=== PATIENT | male | born 1940 | race Caucasian/White ===

== ENCOUNTER 2016-08-15 14:29 | Inpatient (IN) | payer MEDICARE, BC ==
[2016-08-15] MEDS ORDERED: Insulin Aspart 100 Units/ML 3 ML Pen SUBCUT ONE (15:14)
--- NOTE | 2016-08-15 15:32 | EDM.PDOC ---
ED HPI GENERAL MEDICAL PROBLEM - General Chief Complaint: General Stated Complaint: confusion, EKG changes Time Seen by Provider: 08/15/16 14:37 Source of Information: Reports: Patient, EMS, Family, Police History Limitations: Reports: Other (can be hard to understand patient when he is speaking. Mumbles words. This is long-standing issue and patient is speaking as usual per those familiar with him. ) - History of Present Illness INITIAL COMMENTS - FREE TEXT/NARRATIVE: Patient was brought to ER for evaluation by EMS after being pulled over by law enforcement for swerving. Noted to be hard to understand, appeared sweaty/pale to officer. EMS called. Could not get good EKG on site and thus they were concerned that patient could possibly be having some sort of heart issue. Noted to have blood sugar 368. Given single SL nitro as well as 4 baby ASA. Patient is without any complaints upon arrival. Says he feels like his normal self. Denies having vision issues. Nurse familiar with patient says he appears to be at his baseline level of functioning/speaking/interacting. Family visited with patient and did not note any changes. Family says patient has been pulled over in past for swerving on the road and found to have elevated blood sugar. Patient's driving has been a concern in past. Family says he has been "cut down to 3 towns"....it appears that he is only supposed to be driving from home to these three towns per family request. Patient lives alone at home and does not cook for self. He apparently drives self into town where he goes to restaurants to eat/has someone else cook for him. Treatments DRONE OPERATOR: Reports: Aspirin, IV/IO, Oxygen - Related Data Allergies Allergy/AdvReac Type Severity Reaction Status Date / Time No Known Drug Allergies Allergy Cannot Verified 08/15/16 14:49 Remember Home Meds: Home Meds Aspirin [Ecotrin] 1 tab PO DAILY 08/23/14 [History] Levothyroxine 75 mcg PO ACBREAKFAST 08/23/14 [History] Tamsulosin [Flomax] 0.4 mg PO DAILY 08/23/14 [History] atorvaSTATin [Lipitor] 40 mg PO BEDTIME 08/23/14 [History] Acetaminophen 500 mg PO DAILY 08/15/16 [History] Insulin Glarg,Human.Rec.Analog [Lantus Solostar] 23 unit SUBCUT DAILY 08/15/16 [ History] Lisinopril 2.5 mg PO DAILY 08/15/16 [History] amLODIPine [Norvasc] 10 mg PO DAILY 08/15/16 [History] Past Medical History Cardiovascular History: Reports: High cholesterol, Hypertension Genitourinary History: Reports: BPH, Renal disease, Urinary incontinence, Other (see below) Other Genitourinary History: CKD stage 4 Endocrine/Metabolic History: Reports: Diabetes, type II Social & Family History - Tobacco Use Smoking Status *Q: Never Smoker Second Hand Smoke Exposure: No - Caffeine Use Caffeine Use: Reports: Coffee - Alcohol Use Days Per Week of Alcohol Use: 2 Number of Drinks Per Day: 7 Total Drinks Per Week: 14 - Recreational Drug Use Recreational Drug Use: No ED ROS GENERAL - Review of Systems Review Of Systems: ROS reveals no pertinent complaints other than HPI. ED EXAM, GENERAL - Physical Exam Exam: See Below Exam Limited By: No limitations General Appearance: alert, WD/WN, no apparent distress Eye Exam: bilateral eye: EOMI, normal inspection Ears: normal external exam, normal canal, hearing grossly normal Nose: normal inspection Throat/Mouth: Normal inspection, Normal lips, Normal voice, No airway compromise Head: atraumatic, normocephalic Neck: normal inspection, supple, non-tender, full range of motion Respiratory/Chest: no respiratory distress, lungs clear, normal breath sounds, no accessory muscle use, chest non-tender Cardiovascular: regular rate, rhythm, no edema, no murmur Peripheral Pulses: 2+: radial (L), radial (R) GI/Abdominal: normal bowel sounds, soft, non tender, no distention (Male) Exam: Deferred Rectal (Males) Exam: Deferred Back Exam: normal inspection Extremities: non-tender, normal capillary refill Neurological: alert, oriented, other (neurological tone and strength symmetric x4) Psychiatric: normal affect, normal mood Skin Exam: Warm, Dry EKG INTERPRETATION EKG Date: 08/15/16 Time: 14:31 Rhythm: other (Sinus. Intermittent premature atrial complexes.) Rate (beats/min): 94 [place]: LAD-left axis deviation P-wave: present QRS: normal ST-T: normal QT: normal Comparison: no change Course - Vital Signs Last Recorded V/S: Last Vital Signs Temp 37.1 C 08/15/16 14:34 Pulse 88 08/15/16 15:25 Resp 12 08/15/16 15:25 BP 120/65 08/15/16 15:25 Pulse Ox 100 08/15/16 15:25 - Orders/Labs/Meds Orders: Active Orders 24 hr Category Date Time Status EKG Documentation Completion [RC] ASDIRECTED Care 08/15/16 14:40 Active Chest 2V [CR] Stat Exams 08/15/16 14:38 Taken UA W/MICROSCOPIC [URIN] Stat Lab 08/15/16 14:38 Uncollected Labs: Laboratory Tests 08/15/16 08/15/16 08/15/16 Range/Units 14:30 14:30 14:30 WBC 6.0 (4.0-10.2) K/uL RBC 4.27 L (4.33-5.41) M/uL Hgb 12.4 L (13.1-16.8) g/dL Hct 37.3 L (39.0-49.0) % MCV 87.4 (84.0-98.0) fL MCH 29.0 (28.2-33.3) pg MCHC 33.2 (31.7-36.0) g/dL RDW 13.1 (11.2-14.1) % Plt Count 250 (150-350) K/uL Neut % (Auto) 59.2 (45.0-80.0) % Lymph % (Auto) 23.4 (10.0-50.0) % [place] % (Auto) 11.7 (2.0-14.0) % Eos % (Auto) 5.0 (0.0-5.0) % Baso % (Auto) 0.7 (0.0-2.0) % Neut # (Auto) 3.55 (1.40-7.00) K/uL Lymph # (Auto) 1.40 (0.50-3.50) K/uL Bradford # (Auto) 0.70 (0.00-1.00) K/uL Eos # (Auto) 0.30 (0.00-0.50) K/uL Baso # (Auto) 0.04 (0.00-0.20) K/uL D-Dimer, Quantitative 368 (0-400) ng/mL Sodium 136 (136-145) mmol/L Potassium 4.2 (3.5-5.1) mmol/L Chloride 100 (98-107) mmol/L Carbon Dioxide 27.3 (21.0-32.0) mmol/L BUN 42 H (7-18) mg/dL Creatinine 2.08 H (0.51-1.17) mg/dL Est Cr Clr Drug Dosing 25.87 mL/min Estimated GFR (MDRD) 31 mL/min Glucose 431 H* (74-106) mg/dL Hemoglobin A1c (4.3-5.7) % Lactic Acid (0.4-2.0) mmol/L Calcium 8.5 (8.5-10.1) mg/dL Total Bilirubin 0.6 (0.2-1.0) mg/dL AST 20 (15-37) U/L ALT 25 (12-78) U/L Alkaline Phosphatase 63 (46-116) IU/L Creatine Kinase 142 (26-308) U/L Creatine Kinase Index 1.3 (0.0-2.5) % CK-MB (CK-2) 1.90 (0.00-3.60) ng/mL Troponin I 0.003 (0.000-0.056) ng/mL Total Protein 6.4 (6.4-8.2) g/dL Albumin 3.2 L (3.4-5.0) g/dL Ethyl Alcohol (0.000-0.080) g/dL 08/15/16 08/15/16 08/15/16 Range/Units 14:30 14:30 14:30 WBC (4.0-10.2) K/uL RBC (4.33-5.41) M/uL Hgb (13.1-16.8) g/dL Hct (39.0-49.0) % MCV (84.0-98.0) fL MCH (28.2-33.3) pg MCHC (31.7-36.0) g/dL RDW (11.2-14.1) % Plt Count (150-350) K/uL Neut % (Auto) (45.0-80.0) % Lymph % (Auto) (10.0-50.0) % Bradford % (Auto) (2.0-14.0) % Eos % (Auto) (0.0-5.0) % Baso % (Auto) (0.0-2.0) % Neut # (Auto) (1.40-7.00) K/uL Lymph # (Auto) (0.50-3.50) K/uL Bradford # (Auto) (0.00-1.00) K/uL Eos # (Auto) (0.00-0.50) K/uL Baso # (Auto) (0.00-0.20) K/uL D-Dimer, Quantitative (0-400) ng/mL Sodium (136-145) mmol/L Potassium (3.5-5.1) mmol/L Chloride (98-107) mmol/L Carbon Dioxide (21.0-32.0) mmol/L BUN (7-18) mg/dL Creatinine (0.51-1.17) mg/dL Est Cr Clr Drug Dosing mL/min Estimated GFR (MDRD) mL/min Glucose (74-106) mg/dL Hemoglobin A1c > 14.0 H (4.3-5.7) % Lactic Acid 1.2 (0.4-2.0) mmol/L Calcium (8.5-10.1) mg/dL Total Bilirubin (0.2-1.0) mg/dL AST (15-37) U/L ALT (12-78) U/L Alkaline Phosphatase (46-116) IU/L Creatine Kinase (26-308) U/L Creatine Kinase Index (0.0-2.5) % CK-MB (CK-2) (0.00-3.60) ng/mL Troponin I (0.000-0.056) ng/mL Total Protein (6.4-8.2) g/dL Albumin (3.4-5.0) g/dL Ethyl Alcohol 0.002 (0.000-0.080) g/dL Meds: Medications Discontinued Medications Generic Name Dose Route Start Last Admin Trade Name Freq PRN Reason Stop Dose Admin Insulin Aspart 10 unit 08/15/16 15:14 08/15/16 15:23 Novolog SUBCUT 08/15/16 15:15 10 units ONETIME ONE Administration Protocol - Re-Assessments/Exams Free Text/Narrative Re-Assessment/Exam: Patient oriented appropriately. Admits to problem with swerving on road while he drives. Can't really explain why he does it. Says he sees well enough to drive. Family and nursing staff familiar with patient say he appears to be functioning normally and does not have any obvious acute changes. Noted to have blood sugar of 431. Hgb A1C greater than 14. Cr=2.08 but patient does have history of chronic renal disease. Plan at this time is to admit patient for hyperglycemia. Will place him on sliding scale and work on getting blood sugars more in control. Recommend that patient not be allowed to drive anymore due to apparent multiple incidents with erratic driving accompanied by hyperglycemia. Leasing Director consult also/manager council given the issues with patient being home alone and not cooking for self or managing diabetes well. Anticipate stay of 2-3 days. Departure - Departure Time of Disposition: 16:00 Disposition: Admitted As Inpatient 65 Condition: good Clinical Impression: Hyperglycemia, High cholesterol Diabetes type 2, uncontrolled Qualifiers: Diabetes mellitus complication status: with hyperglycemia Diabetes mellitus nursing home insulin use: unspecified nursing home insulin use status Qualified Code(s ): E11.65 - Type 2 diabetes mellitus with hyperglycemia Hypertension Qualifiers: Hypertension type: essential hypertension Qualified Code(s): I10 - Essential ( primary) hypertension BPH (benign prostatic hyperplasia) Qualifiers: Prostatic enlargement morphology: unspecified morphology Lower urinary tract symptom presence: presence of symptoms unspecified Qualified Code(s): N40.0 - Benign prostatic hyperplasia without lower urinary tract symptoms Incontinence of urine Qualifiers: Urinary Incontinence type: unspecified incontinence Qualified Code(s): R32 - Unspecified urinary incontinence Chronic kidney disease Qualifiers: Chronic kidney disease stage: stage 4 (severe) Qualified Code(s): N18.4 - Chronic kidney disease, stage 4 (severe) - Problem List & Annotations (1) BPH (benign prostatic hyperplasia) SNOMED Code(s): 479207972, 503712175 Code(s): N40.0 - BENIGN PROSTATIC HYPERPLASIA WITHOUT LOWER URINRY TRACT SYMP Status: Acute Priority: Low Current Visit: No Qualifiers: Prostatic enlargement morphology: unspecified morphology Lower urinary tract symptom presence: presence of symptoms unspecified Qualified Code(s): N40.0 - Benign prostatic hyperplasia without lower urinary tract symptoms (2) Chronic kidney disease SNOMED Code(s): 641076143 Code(s): N18.9 - CHRONIC KIDNEY DISEASE, UNSPECIFIED Status: Acute Priority: Medium Current Visit: No Qualifiers: Chronic kidney disease stage: stage 4 (severe) Qualified Code(s): N18.4 - Chronic kidney disease, stage 4 (severe) (3) Diabetes type 2, uncontrolled SNOMED Code(s): 01329169, 443669978 Code(s): E11.65 - TYPE 2 DIABETES MELLITUS WITH HYPERGLYCEMIA Status: Acute Priority: High Current Visit: Yes Qualifiers: Diabetes mellitus complication status: with hyperglycemia Diabetes mellitus terminal make up operator insulin use: unspecified nursing home insulin use status Qualified Code(s): E11.65 - Type 2 diabetes mellitus with hyperglycemia (4) High cholesterol SNOMED Code(s): 82999747 Code(s): E78.00 - PURE HYPERCHOLESTEROLEMIA, UNSPECIFIED Status: Acute Priority: Low Current Visit: No (5) Hyperglycemia SNOMED Code(s): 39805079 Code(s): R73.9 - HYPERGLYCEMIA, UNSPECIFIED Status: Acute Priority: High Current Visit: Yes Annotation/Comment:: Patient has poor glycemic control and erratic diet. (6) Hypertension SNOMED Code(s): 56883369 Code(s): I10 - ESSENTIAL (PRIMARY) HYPERTENSION Status: Acute Priority: Low Current Visit: No Qualifiers: Hypertension type: essential hypertension Qualified Code(s): I10 - Essential (primary) hypertension (7) Incontinence of urine SNOMED Code(s): 026925087 Code(s): R32 - UNSPECIFIED URINARY INCONTINENCE Status: Acute Priority: Low Current Visit: No Qualifiers: Urinary Incontinence type: unspecified incontinence Qualified Code(s): R32 - Unspecified urinary incontinence - Problem List Review Problem List Initiated/Reviewed/Updated: Yes - My Orders Last 24 Hours: My Active Orders 08/15/16 14:38 Chest 2V [CR] Stat UA W/MICROSCOPIC [URIN] Stat 08/15/16 14:40 EKG Documentation Completion [RC] ASDIRECTED - Assessment/Plan Admission H&P: Please use this note as an admission H&P Last 24 Hours: My Active Orders 08/15/16 14:38 Chest 2V [CR] Stat UA W/MICROSCOPIC [URIN] Stat 08/15/16 14:40 EKG Documentation Completion [RC] ASDIRECTED Assessment:: Hyperglycemia in patient found to be driving erratically on road. Appears to be acute exacerbation of chronic issue. No other acute issues identified at this time. Plan: Sliding scale insulin, aggressive blood sugar monitoring. PT/OT consult. Consult case management. Anticipate 2-3 day stay.
[2016-08-15] MEDS ORDERED: Acetaminophen 325 MG Tab PO PRN (17:59)
[2016-08-15] MEDS: Insulin Aspart 100 Units/ML 3 ML Pen SUBCUT SCH (18:16)
[2016-08-15] MEDS: atorvaSTATin 40 MG Tab PO SCH (20:32)
[2016-08-16] MEDS: amLODIPine 5 MG Tab PO SCH (07:16)
[2016-08-16] MEDS: Aspirin 325 MG Tab.EC PO SCH (07:16)
[2016-08-16] MEDS: Lisinopril 5 MG Tab PO SCH (07:16)
[2016-08-16] MEDS: Tamsulosin 0.4 MG Cap.ER PO SCH (07:16)
[2016-08-16] MEDS: Levothyroxine 75 MCG Tab PO SCH (07:16)
[2016-08-16] MEDS ORDERED: Sodium Chloride 0.9% 10 ML Syringe FLUSH PRN (07:19)
[2016-08-16] MEDS: Insulin Detemir 100 Units/ML 3 ML Pen SUBCUT SCH (07:21)
[2016-08-16] MEDS: Insulin Aspart 100 Units/ML 3 ML Pen SUBCUT SCH ×4 (07:26→21:55)
--- NOTE | 2016-08-16 13:58 | PCM.PN ---
- General Info Date of Service: 08/16/16 Admission Dx/Problem (Free Text): IDDM with hyperglycemia Functional Status: Reports: pain controlled, tolerating diet, ambulating, urinating, incentive spirometry. Denies: new symptoms - Review of Systems General: Reports: No Symptoms. Denies: Fever, Weakness, Fatigue, Malaise, Chills, Night Sweats, Appetite HEENT: Reports: no symptoms. Denies: dysphasia, ear pain, eye pain, sinus congestion, sore throat, rhinitis Pulmonary: Reports: no symptoms. Denies: shortness of breath, pleuritic chest pain, cough, sputum, hemoptysis, wheezing Cardiovascular: Reports: No Symptoms. Denies: Chest Pain, Palpitations, Dyspnea on Exertion, Orthopnea, PND, Edema, Lightheadedness Gastrointestinal: Reports: No symptoms. Denies: Abdominal pain, Constipation, Decreased appetite, Diarrhea, Difficulty swallowing, Flatus, Hematochezia, Melena, Nausea, Vomiting Genitourinary: Reports: no symptoms. Denies: dysuria, frequency, burning, pain , urgency, incontinence, hematuria, retention, flank pain Musculoskeletal: Reports: no symptoms. Denies: neck pain, shoulder pain, arm pain, back pain, leg pain Skin: Reports: no symptoms. Denies: diaphoresis Neurological: Reports: Confusion (Stable baseline nonspecific mental deficit). Denies: Dizziness, Headache, Paresthesia, Pre-Existing Deficit, Seizure, Syncope , Tingling, Tremors, Trouble Speaking, Difficulty Walking, Weakness, Change in Speech, Gait Disturbance Psychiatric: Reports: confusion. Denies: depression, anxiety, agitation, hallucinations - Patient Data Vitals - most recent: Last Vital Signs Temp 37.1 C 08/16/16 07:15 Pulse 83 08/16/16 07:15 Resp 16 08/15/16 23:22 BP 126/74 08/16/16 07:16 Pulse Ox 94 L 08/16/16 07:15 Weight - most recent: 68.946 kg I&O - last 24 hours: Intake & Output 08/15/16 08/16/16 08/16/16 22:59 06:59 14:59 Intake Total 240 360 Output Total 250 Balance -10 360 Imaging Impressions - last 24 hrs: None Lab Results last 24 hrs: Laboratory Results - last 24 hr 08/15/16 08/15/16 08/15/16 Range/Units 16:45 18:08 20:31 POC Glucose 198 H 174 H (65-110) mg/dl Specimen Type Urinvoid Urine Color Yellow Urine Appearance Clear Urine pH 5.0 (5.0-9.0) Ur Specific [place] 1.015 (1.005-1.030) Urine Protein 30 H (NEGATIVE) mg/dL Urine Glucose (UA) >=1000 H (NEGATIVE) mg/dL Urine Ketones Trace H (NEGATIVE) mg/dL Urine Occult Blood Negative (NEGATIVE) Urine Nitrite Negative (NEGATIVE) Urine Bilirubin Negative (NEGATIVE) Urine Urobilinogen 0.2 (0.2-1.0) E.U./dL Ur Leukocyte Esterase Negative (NEGATIVE) Urine RBC 0-5 /HPF Urine WBC 0-5 /HPF Ur Epithelial Cells Not seen /LPF Urine Bacteria Moderate H (NONE TO FEW) /HPF 08/16/16 08/16/16 Range/Units 07:02 11:09 POC Glucose 178 H 174 H (65-110) mg/dl Specimen Type Urine Color Urine Appearance Urine pH (5.0-9.0) Ur Specific [place] (1.005-1.030) Urine Protein (NEGATIVE) mg/dL Urine Glucose (UA) (NEGATIVE) mg/dL Urine Ketones (NEGATIVE) mg/dL Urine Occult Blood (NEGATIVE) Urine Nitrite (NEGATIVE) Urine Bilirubin (NEGATIVE) Urine Urobilinogen (0.2-1.0) E.U./dL Ur Leukocyte Esterase (NEGATIVE) Urine RBC /HPF Urine WBC /HPF Ur Epithelial Cells /LPF Urine Bacteria (NONE TO FEW) /HPF Dann Results last 24 hrs: None Med Orders - Current: Current Medications Acetaminophen (Tylenol) 650 mg PO Q4H PRN PRN Reason: analgesia/fever Amlodipine Besylate (Norvasc) 10 mg PO DAILY [facility] Last Admin: 08/16/16 07:16 Dose: 10 mg Aspirin (Ecotrin) 325 mg PO DAILY [facility] Last Admin: 08/16/16 07:16 Dose: 325 mg Atorvastatin Calcium (Lipitor) 40 mg PO BEDTIME [facility] Last Admin: 08/15/16 20:32 Dose: 40 mg Insulin Aspart (Novolog) 0 unit SUBCUT TIDMEALS [facility] PRN Reason: Protocol Last Admin: 08/16/16 11:15 Dose: 2 units Insulin Detemir (Levemir) 23 unit SUBCUT DAILY [facility] Last Admin: 08/16/16 07:21 Dose: 23 units Levothyroxine Sodium (Levothyroxine) 75 mcg PO ACBREAKFAST [facility] Last Admin: 08/16/16 07:16 Dose: 75 mcg Lisinopril (Prinivil) 2.5 mg PO DAILY [facility] Last Admin: 08/16/16 07:16 Dose: 2.5 mg Sodium Chloride (Saline Flush) 10 ml FLUSH Q12HR [facility] Sodium Chloride (Saline Flush) 10 ml FLUSH ASDIRECTED PRN PRN Reason: Keep Vein Open Tamsulosin HCl (Flomax) 0.4 mg PO DAILY [facility] Last Admin: 08/16/16 07:16 Dose: 0.4 mg Discontinued Medications Insulin Aspart (Novolog) 10 unit SUBCUT ONETIME ONE PRN Reason: Protocol Stop: 08/15/16 15:15 Last Admin: 08/15/16 15:23 Dose: 10 units - Exam Quality Assessment: DVT prophylaxis. No: supplemental oxygen, urine catheter, skin breakdown, restraints General: alert, oriented, cooperative, no acute distress HEENT: Pupils equal, Pupils reactive, EOMI, Mucous membr. moist/pink Neck: supple, no JVD, no thyromegaly. No: lymphadenopathy Lungs: Clear to auscultation, Normal respiratory effort. No: Rub Cardiovascular: Regular Rate, Regular Rhythm (No extrasystoles at time of exam) , No Murmurs. No: Gallops, Rubs Abdomen: bowel sounds present, soft, no tenderness, no distension. No: guarding , CVA tenderness (Male) Exam: Deferred Back Exam: normal inspection, full range of motion. No: CVA tenderness (L), CVA tenderness (R), muscle spasm Peripheral Pulses: 2+: radial (L), radial (R), dorsalis pedis (L), dorsalis pedis (R) Skin: warm, dry, intact Neurological: no new focal deficit, other (No clinical orthostasis, borderline stable by history chronic mental deficit) Psy/Mental Status: alert, normal affect, normal mood. No: agitated, hallucinations - Problem List & Annotations (1) Diabetes type 2, uncontrolled SNOMED Code(s): 47645415, 787016908 Status: Acute Priority: High Current Visit: Yes Qualifiers: Diabetes mellitus complication status: with kidney complications Diabetes mellitus complication detail: with chronic kidney disease Diabetes mellitus watermelon inspector insulin use: with watermelon inspector use Chronic kidney disease stage: stage 4 (severe) Qualified Code(s): E11.22 - Type 2 diabetes mellitus with diabetic chronic kidney disease; E11.65 - Type 2 diabetes mellitus with hyperglycemia; N18.4 - Chronic kidney disease, stage 4 (severe); Z79.4 - halfway (current) use of insulin Annotation/Comment:: Patient admitted to observation status with blood sugars improved with sliding scale in effect. Patient had been possibly noncompliant with previous insulin therapy. Diabetic teaching initiated. UA was negative with new specimen to be collected for microalbumin and culture and sensitivity. Patient is a poor historian with baseline mental deficits, however he does need to take Accu-Cheks at least on a twice a day basis. Recent significantly elevated glycosylated hemoglobin with this to be repeated tomorrow morning along with his lipid profile. Anticipate hospital discharge tomorrow, if diabetic teaching can be completed. Otherwise may need to transfer to acute care and/or swing bed (2) Confusion SNOMED Code(s): 390488238 Code(s): R41.0 - DISORIENTATION, UNSPECIFIED Status: Acute Priority: High Current Visit: Yes Onset Date: 08/15/16 Annotation/Comment:: Some possible increase of his baseline confusion yesterday secondary to this hyperglycemia, although the patient does have a general mental deficit, which appears to be stable by history at this time. Patient denies any problems with ADLs however case management consultation to be ordered to verify that the patient can safely go home, understands his insulin therapy, possible need for home health, verification of at least twice a day sliding scale, etc. Close followup by his regular providers, if the patient is able to go home (3) BPH (benign prostatic hyperplasia) SNOMED Code(s): 211665745, 776133430 Status: Chronic Priority: Low Current Visit: Yes Qualifiers: Prostatic enlargement morphology: unspecified morphology Lower urinary tract symptom presence: symptoms absent Qualified Code(s): N40.0 - Benign prostatic hyperplasia without lower urinary tract symptoms Annotation/Comment:: Previous urinary incontinence secondary to his BPH with no current UTI symptoms, evidence of urinary retention, etc. Continue to observe closely by his regular provider (4) Chronic kidney disease SNOMED Code(s): 587142242 Status: Chronic Priority: Medium Current Visit: Yes Qualifiers: Chronic kidney disease stage: stage 4 (severe) Qualified Code(s): N18.4 - Chronic kidney disease, stage 4 (severe) Annotation/Comment:: Urine for micro-albumen to be collected as above. Repeat blood work in the a.m. (5) High cholesterol SNOMED Code(s): 36264374 Status: Chronic Priority: Medium Current Visit: Yes Annotation/Comment: : Lipid panel in the a.m. as above (6) Hypertension SNOMED Code(s): 45842410 Status: Acute Priority: Medium Current Visit: Yes Qualifiers: Hypertension type: essential hypertension Qualified Code(s): I10 - Essential (primary) hypertension Annotation/Comment:: Stable during this hospitalization (7) Osteoarthritis SNOMED Code(s): 386970146 Code(s): M19.90 - UNSPECIFIED OSTEOARTHRITIS, UNSPECIFIED SITE Status: Chronic Priority: Medium Current Visit: Yes Qualifiers: Osteoarthritis location: multiple joints Osteoarthritis type: primary Qualified Code(s): M15.0 - Primary generalized (osteo)arthritis Annotation/Comment:: Stable by history (8) Hypothyroidism SNOMED Code(s): 43511313 Code(s): E03.9 - HYPOTHYROIDISM, UNSPECIFIED Status: Chronic Priority: Medium Current Visit: Yes Qualifiers: Hypothyroidism type: acquired Qualified Code(s): E03.9 - Hypothyroidism, unspecified Annotation/Comment:: TSH to be conducted in the a.m. (9) Hypoalbuminemia SNOMED Code(s): 952916672 Code(s): E88.09 - OTH DISORDERS OF PLASMA-PROTEIN METABOLISM, NEC Status: Acute Priority: Medium Current Visit: Yes Onset Date: 08/15/16 Annotation/Comment:: Initiate high-protein Glucerna supplements as snacks with caution secondary to his renal insufficiency (10) PAC (premature atrial contraction) SNOMED Code(s): 725597014 Code(s): I49.1 - ATRIAL PREMATURE DEPOLARIZATION Status: Acute Priority: Medium Current Visit: Yes Onset Date: 08/15/16 Annotation/Comment:: Newly diagnosed occasional PACs by ekg monitor yesterday. No chest pain or anginal complaints with otherwise normal EKG and cardiac enzymes on admission - Problem List Review Problem List Initiated/Reviewed/Updated: Yes - Assessment Assessment:: As above - Plan Plan:: As above. Extensive precautions were given to the patient, who is in agreement with the treatment plan. Ernie hilton physician assumes care in a.m. with anticipation of probable hospital discharge tomorrow
[2016-08-16] MEDS ORDERED: Insulin Aspart 100 Units/ML 3 ML Pen SUBCUT SCH (14:30)
[2016-08-16] MEDS: atorvaSTATin 40 MG Tab PO SCH (19:15)
[2016-08-16] MEDS: Sodium Chloride 0.9% 10 ML Syringe FLUSH SCH (19:15)
[2016-08-17 08:49] VITALS: BP 125/72
[2016-08-17] MEDS: Insulin Aspart 100 Units/ML 3 ML Pen SUBCUT SCH ×3 (09:14→18:02)
[2016-08-17] MEDS: Lisinopril 5 MG Tab PO SCH (09:15)
[2016-08-17] MEDS: Aspirin 325 MG Tab.EC PO SCH (09:15)
[2016-08-17] MEDS: Levothyroxine 75 MCG Tab PO SCH (09:16)
[2016-08-17] MEDS: Tamsulosin 0.4 MG Cap.ER PO SCH (09:16)
[2016-08-17] MEDS: amLODIPine 5 MG Tab PO SCH (09:16)
[2016-08-17] MEDS: Sodium Chloride 0.9% 10 ML Syringe FLUSH SCH (09:19)
[2016-08-17] MEDS: Insulin Detemir 100 Units/ML 3 ML Pen SUBCUT SCH (09:25)
[2016-08-17] MEDS ORDERED: Magnesium Sulfate (4.06 MEQ/ML) 1 GM/2 ML SDV IV ONE (11:26)
--- NOTE | 2016-08-17 14:47 | PCM.DCSUM1 ---
Discharge Summary - Hospital Course Free Text/Narrative:: The patient was admitted on 08/15/2016 after he had been pulled over by police for swerving while driving. On admission had poor glucose control with glucose of 431 and hemoglobin A1C on admission > 14.0 but no evidence of DKA. He has baseline cognitive difficulty and it is believed he has been noncompliant with treatment. He was admitted and started on Novolog sliding scale with improved glucose and resumed home prescription for Levemir 23 units daily with good control. Diabetes education performed and patient expressed and demonstrated understanding and comfortability. Will discharge on Lantus 23 units daily and have patient perform Accuchecks AC and HS and record in log book. Followup with PCP for next available. - Discharge Data Discharge Date: 08/17/16 Discharge Disposition: Home, Self-Care 01 Condition: Stable - Discharge Diagnosis/Problem(s) (1) Diabetes type 2, uncontrolled SNOMED Code(s): 90163586, 886746420 Status: Acute Priority: High Current Visit: Yes Problem Details: Blood sugars improved with sliding scale and has been stable since. Patient had likely been noncompliant with previous insulin therapy. Diabetic teaching initiated and completed. Patient expresses understaning and comfort currently with current insulin regimen and Accuchecks. Will have patient perform Accuchecks AC and HS at home and record in log book. Qualifiers: Diabetes mellitus complication status: with kidney complications Diabetes mellitus complication detail: with chronic kidney disease Diabetes mellitus snf insulin use: with snf use Chronic kidney disease stage: stage 4 (severe) Qualified Code(s): E11.22 - Type 2 diabetes mellitus with diabetic chronic kidney disease; E11.65 - Type 2 diabetes mellitus with hyperglycemia; N18.4 - Chronic kidney disease, stage 4 (severe); Z79.4 - termite technician (current) use of insulin (2) Hypertension SNOMED Code(s): 32574435 Status: Chronic Priority: Medium Current Visit: Yes Problem Details: Stable during this hospitalization Qualifiers: Hypertension type: essential hypertension Qualified Code(s): I10 - Essential (primary) hypertension (3) Hypoalbuminemia SNOMED Code(s): 772578803 ICD Code: E88.09 - OTH DISORDERS OF PLASMA-PROTEIN METABOLISM, NEC Status: Acute Priority: Medium Current Visit: Yes Onset Date: 08/15/16 Problem Details: Recommend high-protein Glucerna supplements as snacks with caution secondary to his renal insufficiency. (4) BPH (benign prostatic hyperplasia) SNOMED Code(s): 663368805, 362691194 Status: Chronic Priority: Low Current Visit: Yes Problem Details: Previous urinary incontinence secondary to his BPH with no current UTI symptoms , evidence of urinary retention, etc. Continue to observe closely by his regular provider Qualifiers: Prostatic enlargement morphology: unspecified morphology Lower urinary tract symptom presence: symptoms absent Qualified Code(s): N40.0 - Benign prostatic hyperplasia without lower urinary tract symptoms (5) Chronic kidney disease SNOMED Code(s): 992569021 Status: Chronic Priority: Medium Current Visit: Yes Qualifiers: Chronic kidney disease stage: stage 4 (severe) Qualified Code(s): N18.4 - Chronic kidney disease, stage 4 (severe) (6) High cholesterol SNOMED Code(s): 86774641 Status: Chronic Priority: Medium Current Visit: Yes (7) Hypothyroidism SNOMED Code(s): 16934237 ICD Code: E03.9 - HYPOTHYROIDISM, UNSPECIFIED Status: Chronic Priority: Medium Current Visit: Yes Qualifiers: Hypothyroidism type: acquired Qualified Code(s): E03.9 - Hypothyroidism, unspecified (8) Osteoarthritis SNOMED Code(s): 834011222 ICD Code: M19.90 - UNSPECIFIED OSTEOARTHRITIS, UNSPECIFIED SITE Status: Chronic Priority: Medium Current Visit: Yes Problem Details: Stable by history Qualifiers: Osteoarthritis location: multiple joints Osteoarthritis type: primary Qualified Code(s): M15.0 - Primary generalized (osteo)arthritis - Patient Summary/Data Consults: Consultations 08/15/16 18:04 Consult to Case Management [CONS] Routine Consult to Occupational Therapy [OT Evaluation and Treatment] [CONS] Routine PT Evaluation and Treatment [CONS] Routine - Patient Instructions Diet: Diabetic Diet Activity: As Tolerated Driving: Do Not Drive (Discuss with PCP at followup.) Showering/Bathing: May Shower Other/Special Instructions: Notify provider of poor glucose control or other concerns. - Discharge Plan Home Medications: Home Meds Aspirin [Ecotrin] 1 tab PO DAILY 08/23/14 [History] Levothyroxine 75 mcg PO ACBREAKFAST 08/23/14 [History] Tamsulosin [Flomax] 0.4 mg PO DAILY 08/23/14 [History] atorvaSTATin [Lipitor] 40 mg PO BEDTIME 08/23/14 [History] Calcitriol [Rocaltrol] 0.25 mcg PO DAILY 12/26/15 [History] Acetaminophen 500 mg PO DAILY 08/15/16 [History] Insulin Glarg,Human.Rec.Analog [Lantus Solostar] 23 unit SUBCUT DAILY 08/15/16 [ History] Lisinopril 2.5 mg PO DAILY 08/15/16 [History] amLODIPine [Norvasc] 10 mg PO DAILY 08/15/16 [History] Cholecalciferol (Vitamin D3) [Vitamin D3] 1,000 units PO DAILY 08/16/16 [History ] Patient Handouts: Type 2 Diabetes Mellitus, Adult, Hyperglycemia, [place] Forms: ED Department Discharge Referrals: Mikki Puente PA-C [Primary Care Provider] - - General Info Date of Service: 08/17/16 Admission Dx/Problem (Free Text: IDDM with hyperglycemia Subjective Update: Patient reports he "feels good". Sitting upright on bed eating lunch on my arrival. No complaints. - Review of Systems General: Reports: No Symptoms HEENT: Reports: no symptoms Pulmonary: Reports: no symptoms Cardiovascular: Reports: No Symptoms Gastrointestinal: Reports: No symptoms Genitourinary: Reports: no symptoms Musculoskeletal: Reports: no symptoms Skin: Reports: no symptoms Neurological: Reports: No Symptoms Psychiatric: Reports: no symptoms - Patient Data Vitals - Most Recent: Last Vital Signs Temp 36.8 C 08/17/16 08:00 Pulse 73 08/17/16 08:00 Resp 16 08/17/16 00:00 BP 125/72 08/17/16 09:16 Pulse Ox 100 08/17/16 08:00 Weight - Most Recent: 69.947 kg I&O - Last 24 hours: Intake & Output 08/16/16 08/17/16 08/17/16 22:59 06:59 14:59 Intake Total 660 360 Output Total 200 Balance 460 360 Lab Results - Last 24 hrs: Laboratory Results - last 24 hr 08/16/16 08/16/16 08/16/16 Range/Units 17:13 17:50 21:47 WBC (4.0-10.2) K/uL RBC (4.33-5.41) M/uL Hgb (13.1-16.8) g/dL Hct (39.0-49.0) % MCV (84.0-98.0) fL MCH (28.2-33.3) pg MCHC (31.7-36.0) g/dL RDW (11.2-14.1) % Plt Count (150-350) K/uL Neut % (Auto) (45.0-80.0) % Lymph % (Auto) (10.0-50.0) % [place] % (Auto) (2.0-14.0) % Eos % (Auto) (0.0-5.0) % Baso % (Auto) (0.0-2.0) % Neut # (Auto) (1.40-7.00) K/uL Lymph # (Auto) (0.50-3.50) K/uL [place] # (Auto) (0.00-1.00) K/uL Eos # (Auto) (0.00-0.50) K/uL Baso # (Auto) (0.00-0.20) K/uL Sodium (136-145) mmol/L Potassium (3.5-5.1) mmol/L Chloride (98-107) mmol/L Carbon Dioxide (21.0-32.0) mmol/L BUN (7-18) mg/dL Creatinine (0.51-1.17) mg/dL Est Cr Clr Drug Dosing mL/min Estimated GFR (MDRD) mL/min Glucose (74-106) mg/dL POC Glucose 114 H 199 H (65-110) mg/dl Hemoglobin A1c (4.3-5.7) % Uric Acid (2.6-7.2) mg/dL Calcium (8.5-10.1) mg/dL Phosphorus (2.6-4.7) mg/dL Magnesium (1.8-2.4) mg/dL Total Bilirubin (0.2-1.0) mg/dL AST (15-37) U/L ALT (12-78) U/L Alkaline Phosphatase (46-116) IU/L Total Protein (6.4-8.2) g/dL Albumin (3.4-5.0) g/dL Triglycerides (30-150) mg/dL Cholesterol (100-200) mg/dL LDL Cholesterol, Calc (0-100) mg/dL HDL Cholesterol (40-60) mg/dL Ur Random Microalbumin 50 (NEGATIVE) mg/L 08/17/16 08/17/16 08/17/16 Range/Units 06:09 06:48 06:48 WBC 7.5 (4.0-10.2) K/uL RBC 4.11 L (4.33-5.41) M/uL Hgb 11.9 L (13.1-16.8) g/dL Hct 36.7 L (39.0-49.0) % MCV 89.3 (84.0-98.0) fL MCH 29.0 (28.2-33.3) pg MCHC 32.4 (31.7-36.0) g/dL RDW 13.5 (11.2-14.1) % Plt Count 241 (150-350) K/uL Neut % (Auto) 61.6 (45.0-80.0) % Lymph % (Auto) 23.7 (10.0-50.0) % [place] % (Auto) 9.8 (2.0-14.0) % Eos % (Auto) 4.2 (0.0-5.0) % Baso % (Auto) 0.7 (0.0-2.0) % Neut # (Auto) 4.64 (1.40-7.00) K/uL Lymph # (Auto) 1.79 (0.50-3.50) K/uL [place] # (Auto) 0.74 (0.00-1.00) K/uL Eos # (Auto) 0.32 (0.00-0.50) K/uL Baso # (Auto) 0.05 (0.00-0.20) K/uL Sodium 140 (136-145) mmol/L Potassium 4.6 (3.5-5.1) mmol/L Chloride 105 (98-107) mmol/L Carbon Dioxide 28.0 (21.0-32.0) mmol/L BUN 39 H (7-18) mg/dL Creatinine 1.95 H (0.51-1.17) mg/dL Est Cr Clr Drug Dosing 27.55 mL/min Estimated GFR (MDRD) 34 mL/min Glucose 127 H (74-106) mg/dL POC Glucose 136 H (65-110) mg/dl Hemoglobin A1c (4.3-5.7) % Uric Acid 5.6 (2.6-7.2) mg/dL Calcium 8.9 (8.5-10.1) mg/dL Phosphorus 3.5 (2.6-4.7) mg/dL Magnesium 1.5 L (1.8-2.4) mg/dL Total Bilirubin 0.5 (0.2-1.0) mg/dL AST 18 (15-37) U/L ALT 22 (12-78) U/L Alkaline Phosphatase 55 (46-116) IU/L Total Protein 6.0 L (6.4-8.2) g/dL Albumin 3.0 L (3.4-5.0) g/dL Triglycerides 96 (30-150) mg/dL Cholesterol 129 (100-200) mg/dL LDL Cholesterol, Calc 54 (0-100) mg/dL HDL Cholesterol 56 (40-60) mg/dL Ur Random Microalbumin (NEGATIVE) mg/L 08/17/16 08/17/16 08/17/16 Range/Units 06:48 07:41 11:37 WBC (4.0-10.2) K/uL RBC (4.33-5.41) M/uL Hgb (13.1-16.8) g/dL Hct (39.0-49.0) % MCV (84.0-98.0) fL MCH (28.2-33.3) pg MCHC (31.7-36.0) g/dL RDW (11.2-14.1) % Plt Count (150-350) K/uL Neut % (Auto) (45.0-80.0) % Lymph % (Auto) (10.0-50.0) % [place] % (Auto) (2.0-14.0) % Eos % (Auto) (0.0-5.0) % Baso % (Auto) (0.0-2.0) % Neut # (Auto) (1.40-7.00) K/uL Lymph # (Auto) (0.50-3.50) K/uL [place] # (Auto) (0.00-1.00) K/uL Eos # (Auto) (0.00-0.50) K/uL Baso # (Auto) (0.00-0.20) K/uL Sodium (136-145) mmol/L Potassium (3.5-5.1) mmol/L Chloride (98-107) mmol/L Carbon Dioxide (21.0-32.0) mmol/L BUN (7-18) mg/dL Creatinine (0.51-1.17) mg/dL Est Cr Clr Drug Dosing mL/min Estimated GFR (MDRD) mL/min Glucose (74-106) mg/dL POC Glucose 119 H 104 (65-110) mg/dl Hemoglobin A1c 8.3 H (4.3-5.7) % Uric Acid (2.6-7.2) mg/dL Calcium (8.5-10.1) mg/dL Phosphorus (2.6-4.7) mg/dL Magnesium (1.8-2.4) mg/dL Total Bilirubin (0.2-1.0) mg/dL AST (15-37) U/L ALT (12-78) U/L Alkaline Phosphatase (46-116) IU/L Total Protein (6.4-8.2) g/dL Albumin (3.4-5.0) g/dL Triglycerides (30-150) mg/dL Cholesterol (100-200) mg/dL LDL Cholesterol, Calc (0-100) mg/dL HDL Cholesterol (40-60) mg/dL Ur Random Microalbumin (NEGATIVE) mg/L AYSHA Results - Last 24 hrs: Microbiology 08/16/16 17:50 Urine Culture - Preliminary Urine, Clean Catch NO GROWTH AFTER 1 DAY Med Orders - Current: Current Medications Acetaminophen (Tylenol) 650 mg PO Q4H PRN PRN Reason: analgesia/fever Amlodipine Besylate (Norvasc) 10 mg PO DAILY [facility] Last Admin: 08/17/16 09:16 Dose: 10 mg Aspirin (Ecotrin) 325 mg PO DAILY [facility] Last Admin: 08/17/16 09:15 Dose: 325 mg Atorvastatin Calcium (Lipitor) 40 mg PO BEDTIME [facility] Last Admin: 08/16/16 19:15 Dose: 40 mg Insulin Aspart (Novolog) 0 unit SUBCUT ACBED [facility] PRN Reason: Protocol Last Admin: 08/17/16 11:45 Dose: Not Given Insulin Detemir (Levemir) 23 unit SUBCUT DAILY [facility] Last Admin: 08/17/16 09:25 Dose: 23 units Levothyroxine Sodium (Levothyroxine) 75 mcg PO ACBREAKFAST [facility] Last Admin: 08/17/16 09:16 Dose: 75 mcg Lisinopril (Prinivil) 2.5 mg PO DAILY [facility] Last Admin: 08/17/16 09:15 Dose: 2.5 mg Sodium Chloride (Saline Flush) 10 ml FLUSH Q12HR [facility] Last Admin: 08/17/16 09:19 Dose: 10 ml Sodium Chloride (Saline Flush) 10 ml FLUSH ASDIRECTED PRN PRN Reason: Keep Vein Open Tamsulosin HCl (Flomax) 0.4 mg PO DAILY [facility] Last Admin: 08/17/16 09:16 Dose: 0.4 mg Discontinued Medications Magnesium Sulfate 1 gm/ (Dextrose/Water) 102 mls @ 100 mls/hr IV ONETIME ONE Stop: 08/17/16 12:46 Last Admin: 08/17/16 12:47 Dose: Not Given Insulin Aspart (Novolog) 10 unit SUBCUT ONETIME ONE PRN Reason: Protocol Stop: 08/15/16 15:15 Last Admin: 08/15/16 15:23 Dose: 10 units Insulin Aspart (Novolog) 0 unit SUBCUT TIDMEALS [facility] PRN Reason: Protocol Last Admin: 08/16/16 11:15 Dose: 2 units Insulin Aspart (Novolog) 0 unit SUBCUT ACBED [facility] PRN Reason: Protocol Magnesium Sulfate/Dextrose (Magnesium 1 Gm In D5w 100 Ml) 1 gm IV ONETIME ONE Stop: 08/17/16 12:28 Last Admin: 08/17/16 13:03 Dose: 1 gm - Exam General: Reports: alert, oriented HEENT: Reports: Pupils equal, Pupils reactive, EOMI, Mucous membr. moist/pink Neck: Reports: supple Lungs: Reports: Clear to auscultation, Normal respiratory effort Cardiovascular: Reports: Regular Rate, Regular Rhythm Abdomen: Reports: bowel sounds present, soft, no tenderness, no distension Back Exam: Reports: normal inspection, full range of motion Extremities: Reports: no edema, normal pulses, no tenderness/swelling, no clubbing, no cyanosis, no calf tenderness Skin: Reports: warm, dry, intact Neurological: Reports: no new focal deficit Psy/Mental Status: Reports: alert, normal affect, normal mood *Q Meaningful Use (DIS) - VTE *Q VTE Criteria *Q: - Stroke *Q Stroke Criteria *Q: - AMI *Q AMI Criteria *Q:
== END 2016-08-17 17:25 | disposition home or self-care (01) | DRG 638 ==
LOC: LL.ED 14:29 → UNDOADMIN 15:49 → MERGE 15:49 → LL.MS 15:49 → UNDODISIN 08-17 17:25
PROVIDERS: ADMIT Emergency Medicine; ATTEND Emergency Medicine
DX: E11.65 Type 2 diabetes mellitus with hyperglycemia (principal); N18.4 Chronic kidney disease, stage 4 (severe); E11.22 Type 2 diabetes mellitus with diabetic chronic kidney disease; R41.0 Disorientation, unspecified; I12.9 Hypertensive chronic kidney disease with stage 1 through stage 4 chronic kidney disease, or unspecified chronic kidney disease; Z79.4 Long term (current) use of insulin; E03.9 Hypothyroidism, unspecified; I49.1 Atrial premature depolarization; F79 Unspecified intellectual disabilities; Z91.14 Patient's other noncompliance with medication regimen; E88.09 Other disorders of plasma-protein metabolism, not elsewhere classified; E78.00 Pure hypercholesterolemia, unspecified; N40.0 Benign prostatic hyperplasia without lower urinary tract symptoms; M15.0 Primary generalized (osteo)arthritis; Z79.82 Long term (current) use of aspirin
CPT/HCPCS: 36415; 71020; 80053; 82550; 82553; 83036; 83605; 84484; 85025; 85379; 93005; 96372; 99285; G0480; J1815; 80061; 81001; 82044; 82962; 83735; 84100; 84550; 87086; 97161-GP; A9270-GY; J3475; J7050